=== PATIENT | male | born 1970 | race Caucasian/White ===

== ENCOUNTER 2016-12-25 14:08 | Emergency (ER) | payer SELFPAY ==
[2016-12-25 17:27] VITALS: BP 111/75
--- NOTE | 2016-12-25 18:43 | ED ---
Lower Extremity - HPI Summary HPI Summary: 46 M presents with left leg contusion. He hit it with a hammer last night. He denies any numbness or tingling. Pain is located on left gamble and does not radiate to knee. The area is black and blue. He has been using ibuprofen for pain. - History of Current Complaint Chief Complaint: EDExtremityLower Stated Complaint: LT LEG INJRUY Time Seen by Provider: 12/25/16 18:04 Pain Intensity: 10 - Allergies/Home Medications Allergies/Adverse Reactions: Allergies Allergy/AdvReac Type Severity Reaction Status Date / Time No Known Allergies Allergy Verified 06/29/14 11:07 PMH/Surg Hx/FS Hx/Imm Hx Endocrine/Hematology History: Denies: Hx Anticoagulant Therapy Cardiovascular History: Denies: Hx Coronary Artery Disease Infectious Disease History: No Infectious Disease History: Denies: Traveled Outside the [place] in Last 30 Days - Family History Known Family History: Positive: Cardiac Disease - Social History Alcohol Use: None Substance Use Type: Reports: None Smoking Status (MU): Light Every Day Tobacco Smoker Review of Systems Negative: Fever Negative: Chest Pain Negative: Shortness Of Breath Positive: Other - contusion of left gamble All Other Systems Reviewed And Are Negative: Yes Physical Exam Triage Information Reviewed: Yes Vital Signs On Initial Exam: Initial Vitals Temp Pulse Resp BP Pulse Ox 97.7 F 83 16 133/97 99 12/25/16 14:11 12/25/16 14:11 12/25/16 14:11 12/25/16 14:11 12/25/16 14:11 Vital Signs Reviewed: Yes Appearance: Positive: Well-Appearing Skin: Positive: Warm, Dry, Other - black and blue bruise of left gamble 7 cm from patella Head/Face: Positive: Normal Head/Face Inspection Eyes: Positive: Normal, Conjunctiva Clear ENT: Positive: Normal ENT inspection, Pharynx normal, TMs normal Respiratory/Lung Sounds: Positive: Clear to Auscultation, Breath Sounds Present Cardiovascular: Positive: Normal, RRR Musculoskeletal: Positive: Strength/ROM Intact - of left knee and ankle, Other - good pulses, capillary refill < 2secs, tender over contusion with no step off , no edema of left knee and knee nontender Diagnostics - Vital Signs Vital Signs Temp Pulse Resp BP Pulse Ox 12/25/16 17:26 98.9 F 67 16 111/75 99 12/25/16 15:45 99 F 74 116/70 98 12/25/16 14:11 97.7 F 83 16 133/97 99 - Laboratory Lab Statement: Any lab studies that have been ordered have been reviewed, and results considered in the medical decision making process. - Radiology gamble Xray Interpretation: No Acute Changes Radiology Interpretation Completed By: Radiologist Lower Extremity Course/Dx - Course Course Of Treatment: 46 M w/ visible bruise of left gamble s/p hitting with a hammer, neurovascular intact, xray normal, will treat as contusion, patietn agrees with plan - Diagnoses Differential Diagnosis/HQI/PQRI: Positive: Contusion, Fracture (Closed), Sprain Provider Diagnoses: contusion of left gamble Discharge - Discharge Plan Condition: Good Disposition: HOME Patient Education Materials: Contusion in Adults (ED) Referrals: No Primary Care Phys,NOPCP [Primary Care Provider] - [facility] [place] [facility] [Outside] Additional Instructions: Take Tylenol or ibuprofen every 6 hours as needed for pain Apply ice, rest, elevate Establish care with primary care physician Return to ED if develop numbness, tingling, inability to move joint, or any new or worsening symptoms
--- NOTE | 2016-12-25 19:04 | RAD ---
INDICATION: Left lower leg injury. TECHNIQUE: 2 views of the left lower leg were obtained. FINDINGS: There is soft tissue swelling anterior to the proximal and mid tibia. No fracture is seen. IMPRESSION: Soft tissue swelling, no fracture is seen.
== END 2016-12-25 19:15 | disposition home or self-care (01) ==
LOC: ED 14:08
DX: S80.12XA Contusion of left lower leg, initial encounter (principal); W22.8XXA Striking against or struck by other objects, initial encounter; Y93.9 Activity, unspecified; Y92.9 Unspecified place or not applicable; Y99.9 Unspecified external cause status
CPT/HCPCS: 99281